=== PATIENT | female | born 1975 | race Caucasian/White ===

== ENCOUNTER 2016-06-29 08:34 | Emergency (ER) | payer BC ==
[2016-06-29] MEDS ORDERED: oxyCODONE-ACETAMINOPHEN 5-325 TAB PO ONE (08:45)
[2016-06-29] MEDS ORDERED: KETOROLAC 60 MG/2 ML VIAL IM ONE (08:45)
--- NOTE | 2016-06-29 09:04 | PDOC ---
Lower Extremity Injury HPI - General Chief Complaint: Lower Extremity Problem/Injury Stated Complaint: Left Knee Pain Date Seen by Provider: 06/29/16 Time Seen by Provider: 08:40 Source: POSITIVE: Patient Exam Limitations: POSITIVE: No limitations Nurse's Notes Reviewed & Considered: Yes - History of Present Illness Initial Comments: The patient is a 41-year-old female who presents to the emergency department with left knee pain. She states that she slipped on the ice and landed on her left knee with her lower leg folded up underneath her. The direct impact was on the knee itself. She has significant pain to the knee especially with attempts at weightbearing. She is unable to bend the knee completely stating that it feels like it locks up. She has had previous surgery on the left knee 2, the last surgery was approximately 13 years ago. She denies any other associated injuries or complaints. She took 2 hydrocodone as well as a Flexeril at home however is still having significant pain. Have you received a tetanus shot in the past 10 years?: Unknown - Patient Home Medications Home Medications: Home Medications Etonogestrel/Ethinyl Estradiol [Nuvaring Vaginal Ring] 1 vag ring VAGINAL MONTHLY vag ring 10/12/12 Ibuprofen 800 mg PO PRN 10/12/12 Zolpidem Tartrate [Ambien Cr] 12.5 mg PO PRN 10/12/12 Cyclobenzaprine HCl [Flexeril] 10 mg PO Q6H PRN PRN 06/29/16 Diazepam [Valium] 5 mg PO Q6H PRN #10 tab 06/29/16 Hydrocodone Bit/Acetaminophen [Hydrocodon-Acetaminophen 5-325] 2 each PO Q6H PRN PRN 06/29/16 oxyCODONE/APAP 10/325 Tab [Percocet 10/325 Tab] 1 - 2 each PO Q6H PRN #15 tablet 06/29/16 - Patient Allergies Allergies/Adverse Reactions: Allergies Allergy/AdvReac Type Severity Reaction Status Date / Time Penicillins Allergy Severe Anaphylaxis Verified 06/29/16 08:39 morphine Allergy Intermediate ITCHING Verified 06/29/16 08:39 Past Medical History - heen HEENT History: Denies History Cardiovascular History: Denies History Respiratory History: Denies History Gastrointestinal History: Denies History Genitourinary History: Denies History Endocrine History: Denies History Musculoskeletal History: Other (please comment) Additional Musculoskeletal History: LEFT KNEE SURGERIES. CHRONIC PAIN NECK Neurological History: Migraines Blood Disorders: Denies History Psychiatric History: Denies History History of Sexually Transmitted Diseases: No Female Reproductive History: Denies History Obstetrical History: Denies History Cancer History: Denies History In Past Year Been Physically Harmed or Verbally Threatened: No History of MDRO: No Tobacco Use: Former Smoker Alcohol Use: Rarely Substance Use Type: None Previous Surgical History: Yes Type / Date of Surgery: LEFT KNEE X 2, CHOLECYSTECTOMY, D&C X5, UMBILICAL HERNIA , FUSION C5-C6, RIGHT CARPAL TUNNEL Significant Family History: No pertinent family hx Past Medical History Reviewed: Reviewed - No Changes ROS - Limitations ROS Limitations: No Limitations (Review of systems otherwise noncontributory) Lower Ext Complaint Exam - General Appearance General Appearance: POSITIVE: Alert, Cooperative, No Acute Distress - Extremities Lower Extremity: POSITIVE: Other (Examination left knee does reveal a superficial abrasion just distal to the patella, she does have a small joint effusion noted as well as tenderness over the patella. She has limited range of motion secondary to pain and I am not able to adequately assess the ligament stability at this time) Gait: POSITIVE: Limited by Pain Neurovascular/Tendon: POSITIVE: Sensation Normal, Motor Normal, No Vascular Compromise Lower Ext Complaint Progress - Results Reviewed by me Xrays/CTs/US Reviewed by me: Yes Radiology Findings: X-ray of the left knee reveals postoperative as well as degenerative changes with no evidence of acute fracture or dislocation. - Patient's Progress MDM / ED Course: She was still having significant pain despite taking hydrocodone and Flexeril at home. She was given Toradol 60 mg IM and Percocet 5/325 2 by mouth for pain. X-rays reveal no obvious fracture, hardware loosening or dislocation. She continued to have significant pain and was given Dilaudid milligram IM. She was placed in a straight leg immobilizer and given crutches to assist with ambulation. She does have evidence of joint effusion x-ray. Suspect soft tissue injury. Recommend follow-up with orthopedic surgery. Return to the emergency room if increased pain, numbness, worsening or change in symptoms. - Consult Counseled: POSITIVE: Patient, Family, RE: Radiology Results, RE: DX, RE: Need for F/U Patient Care Time - Estimated PCT Patient Care Time (In Minutes): 20 Vital Signs - Recent Vital Signs Vital Signs: Vital Signs (Last 8 hours) Temp Pulse Resp BP Pulse Ox 06/29/16 08:59 98.1 F 123 H 20 144/07 96 - VS Reviewed Vital Signs Reviewed: Yes Discharge Clinical Impression: Knee injury, Knee effusion Discharge Disposition: Discharged to Home Condition: Stable Prescriptions / Orders: oxyCODONE/APAP 10/325 Tab [Percocet 10/325 Tab] 1 - 2 each PO Q6H PRN #15 tablet PRN Reason: Pain Diazepam [Valium] 5 mg PO Q6H PRN #10 tab PRN Reason: Spasms Patient Instructions Given at Discharge: Knee Pain (ED) Additional Instructions: Knee immobilizer. Ice and elevate the left knee. Crutches to assist with ambulation. Can bear weight as tolerated. Ibuprofen 800 mg 3 times a day as needed for pain. Percocet 10/325 one to 2 every 6 hours as needed for pain. Valium 5 mg every 6 hours as needed for spasm. Return to the emergency room if increased pain, numbness, worsening or change in symptoms. Follow-up with orthopedic surgery in 3-5 days. Follow Up With: [facility] EM [Primary Care Provider] -
[2016-06-29 09:08] VITALS: RESP 20; TEMP 98.1
[2016-06-29] MEDS ORDERED: HYDROmorphone 2 MG/1 ML IM ONE (09:28)
--- NOTE | 2016-06-29 10:15 | DI ---
History patient fell. Knee pain. Three-view study. Prior examination: None. Findings: There are 2 fixation screws front to back through the tibial tubercle area. Overall bone mi neral density is low. All 4 bones depicted appear normal. No knee joint effusion is observed. There i s mild degenerative change of the patellofemoral junction Impression: 2 fixation screws in the proximal tibia Some degenerative changes of the patella with marginal osteophyte formation. No other osseous finding s observed
== END 2016-06-29 09:56 | disposition home or self-care (01) ==
LOC: ER 08:34
DX: S80.212A Abrasion, left knee, initial encounter (principal); M25.462 Effusion, left knee; W00.0XXA Fall on same level due to ice and snow, initial encounter
CPT/HCPCS: 73562; 96372; 99282; 99283; J1885; J1170

== ENCOUNTER → 2016-08-03 | Outpatient (CLI) | payer BC ==
[2016-08-03 23:41] LABS: HEMATOCRIT 38.9 % (37.0-47.0); HEMOGLOBIN 12.6 g/dL (12.0-16.0); MEAN CORPUSCULAR HEMOGLOBIN 28.3 PG (27-31); MEAN CORPUSCULAR HGB CONC 32.4 g/dL (33-37); MEAN PLATELET VOLUME 9.5 FL (7.4-12.2); RDW COEFFICIENT OF VARIATION 13.7 % (11.5-14.5); RED BLOOD COUNT 4.46 10^6/uL (4.20-5.40); WHITE BLOOD COUNT 12.37 10^3/uL (4.8-10.8)
[2016-08-03 23:48] LABS: ASPARTATE AMINO TRANSFERASE 17 IU/L (8-39); BILIRUBIN,TOTAL 0.4 mg/dL (0.3-1.2); BLOOD UREA NITROGEN 10 mg/dL (7-22); BUN/CREATININE RATIO 14.28 (6-20); CALCIUM 9.4 mg/dL (8.7-10.7); CHLORIDE 102 meq/L (98-112); CREATININE 0.7 mg/dL (0.50-1.20); EST GLOMERULAR FILTRATION > 60 (>60 ml/min/1.73m(2)); GLUCOSE 96 mg/dL (78-110); POTASSIUM 3.9 meq/L (3.8-5.2); SODIUM 139 meq/L (135-145); TOTAL PROTEIN 8.3 g/dL (6.1-8.0)
[2016-08-04 09:35] LABS: LYMPHOCYTES % (AUTO) 35.8 % (10-50); MONOCYTES % (AUTO) 6.4 % (5-15); NEUTROPHILS % (AUTO) 54.4 % (50-80)
[2016-08-04 09:36] LABS: BASOPHILS # (AUTO) 0.04 10*3/UL; BASOPHILS % (AUTO) 0.3 % (0-1); EOSINOPHILS % (AUTO) 1.8 % (0-8); IMM GRAN % (AUTO) 1.3 % (0-5); IMM GRAN# (AUTO) 0.16 10*3/UL; LYMPHOCYTES # (AUTO) 4.43 10*3/uL; MONOCYTES # (AUTO) 0.79 10*3/UL (0.3-0.8); NEUTROPHILS # (AUTO) 6.73 10*3/UL; PLATELET MORPHOLOGY COMMENT NORMAL MORPHOLOGY (NORM)
== END ==
LOC: LAB 23:10
PROVIDERS: ATTEND Orthopaedic Surgery
DX: M25.562 Pain in left knee (principal)
CPT/HCPCS: 80053; 85025; 85027